=== PATIENT | female | born 1985 | race Caucasian/White ===

== ENCOUNTER 2017-09-17 20:42 | Emergency (ER) | payer OTHER ==
[~2017-09-17] VITALS: Ht 157.5 cm; Wt 107.5 kg
[2017-09-17 22:06] VITALS: BP 138/81
[2017-09-17] MEDS ORDERED: HYDROcodone-ACET 10/325MG TAB PO ONE (23:00)
== END 2017-09-18 00:05 | disposition home or self-care (01) ==
LOC: ER 20:42
DX: S93.115A Dislocation of interphalangeal joint of left lesser toe(s), initial encounter (principal); J45.909 Unspecified asthma, uncomplicated; X58.XXXA Exposure to other specified factors, initial encounter; Y93.89 Activity, other specified; Y99.8 Other external cause status; Y92.89 Other specified places as the place of occurrence of the external cause
CPT/HCPCS: 28630; 28660; 73620; 73660